=== PATIENT | female | born 2000 | race Caucasian/White ===

== ENCOUNTER 2022-05-05 22:09 | Emergency (ER) | payer OTHER ==
[2022-05-05] MEDS ORDERED: Lidocaine 1% 20 ML MDV INFILT ONE (22:10)
== END 2022-05-05 22:58 | disposition home or self-care (01) ==
LOC: FB.ED 22:09
DX: S61.412A Laceration without foreign body of left hand, initial encounter (principal); Z79.899 Other long term (current) drug therapy; W26.8XXA Contact with other sharp object(s), not elsewhere classified, initial encounter
CPT/HCPCS: 12001; 99281; 99282